=== PATIENT | male | born 1960 | race African-American/Black ===

== ENCOUNTER 2017-11-28 10:36 | Inpatient (IN) | payer BC, OTHER ==
[2017-11-28 11:02] VITALS: BMI 27.8
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
[2017-11-28] MEDS ORDERED: MAGNESIUM HYDROX 2400MG/30ML ORAL SUSPENSION 30 ML CUP PO PRN (14:58)
[2017-11-28] MEDS ORDERED: NICOTINE POLACRILEX 2 MG GUM BUC PRN (14:58)
[2017-11-28] MEDS ORDERED: guaiFENesin/D-METHORPHAN HB 10 ML UNIT-DOSE CUPS PO PRN (14:58)
[2017-11-28] MEDS ORDERED: IBUPROFEN 400 MG TABLET (FP) PO PRN (14:58)
[2017-11-28] MEDS ORDERED: P-EPHED 60MG/TRIPROLIDI 2.5MG TABLET PO PRN (14:58)
[2017-11-28] MEDS ORDERED: MAGNESIUM CITRATE 300 ML BOTTLE PO PRN (14:58)
[2017-11-28] MEDS ORDERED: hydrOXYzine PAMOATE 50 MG CAPSULE (FP) PO PRN (14:58)
[2017-11-28] MEDS ORDERED: MENTHOL/PHENOL 1 EACH UD MM PRN (14:58)
[2017-11-28] MEDS ORDERED: ACETAMINOPHEN 325 MG TABLET (FP) PO PRN (14:58)
[2017-11-28] MEDS ORDERED: LOPERAMIDE HCL 2 MG CAPSULE PO PRN (14:58)
[2017-11-28] MEDS ORDERED: MAG HYDROX/AL HYDROX/SIMETH 30 ML UNIT-DOSE CUP PO PRN (14:58)
[2017-11-28] MEDS ORDERED: METHADONE HCL 10 MG TABLET (FOR DETOX USE ONLY) PO ONE ×2 (15:10→23:00)
[2017-11-28] MEDS: diazePAM 5 MG TABLET PO PRN (16:35)
[2017-11-28] MEDS: GABAPENTIN 100 MG CAPSULE (FP) PO SCH ×2 (16:35→21:31)
[2017-11-28] MEDS: INSULIN SLIDING SCALE (NOVOLOG) 1 VIAL SQ SCH ×2 (16:38→21:31)
[2017-11-28] MEDS: INSULIN (LEVEMIR) 100 UNITS/ML UNITS SQ SCH (21:30)
[2017-11-28] MEDS: ATORVASTATIN CA 40 MG TABLET (FP) PO SCH (21:31)
[2017-11-28] MEDS: THIAMINE HCL 100 MG TABLET (FP) PO SCH (21:31)
[2017-11-28] MEDS ORDERED: MELATONIN 5 MG TABLETS PO PRN (22:00)
[2017-11-28 23:27] LABS: URINE APPEARANCE CLEAR; URINE BILIRUBIN NEGATIVE (<2.0 mg/dL); URINE COLOR YELLOW; URINE GLUCOSE (UA) NEGATIVE (NEGATIVE); URINE KETONE NEGATIVE (NEGATIVE); URINE LEUK ESTERASE NEGATIVE (NEGATIVE); URINE NITRITE NEGATIVE (NEGATIVE); URINE PROTEIN NEGATIVE (NEGATIVE)
[2017-11-29] MEDS: GABAPENTIN 100 MG CAPSULE (FP) PO SCH ×3 (05:20→22:52)
[2017-11-29] MEDS: diazePAM 5 MG TABLET PO PRN ×2 (05:20→10:40)
[2017-11-29] MEDS: INSULIN SLIDING SCALE (NOVOLOG) 1 VIAL SQ SCH ×4 (07:06→22:52)
[2017-11-29] MEDS ORDERED: METHADONE HCL 10 MG TABLET (FOR DETOX USE ONLY) ONE (08:52)
--- NOTE | 2017-11-29 09:05 | EKG ---
Test Reason : Blood Pressure : / mmHG Vent. Rate : 085 BPM Atrial Rate : 085 BPM P-R Int : 182 ms QRS Dur : 100 ms QT Int : 390 ms P-R-T Axes : 079 039 069 degrees QTc Int : 464 ms NORMAL SINUS RHYTHM POSSIBLE LEFT ATRIAL ENLARGEMENT CANNOT RULE OUT SEPTAL INFARCT , AGE UNDETERMINED ABNORMAL ECG WHEN COMPARED WITH ECG OF 07-AUG-2017 21:32, SEPTAL INFARCT IS NOW PRESENT Confirmed by DELMA FISCHER MD ([id number]) on 11/29/2017 9:05:14 AM Referred By: Confirmed By:DELMA FISCHER MD
--- NOTE | 2017-11-29 09:11 | CONSULT ---
[facility] Psychiatric Consult - Data Date of interview: 11/29/17 Admission source: [facility] Identifying data: Patient is a 57 year old single male, without kids, domiciled , and supported by SSD. This is one of multiple admissions for patient. Patient admitted to for opiate dependence. Substance Abuse History: Smoking Cessation. Smoking history: Current every day smoker. Have you smoked in the past 12 months: Yes. Aproximately how many cigarettes per day: 8. Cigars Per Day: 0. Hx Chewing Tobacco Use: No. Initiated information on smoking cessation: Yes. 'Breaking Loose' booklet given : 11/28/17. - Substance & Tx. History. Hx Alcohol Use: No. Hx Substance Use: Yes. Substance Use Type: Heroin, Marijuana. Hx Substance Use Treatment: Yes. - Substances Abused. Heroin. Route: Injection. Frequency: Daily. Amount used: 3 BAGS. Age of first use: 23. Date of Last Use: 11/28/17. Marijuana/ Hashish. Route: Smoking. Frequency: Daily. Amount used: 1 JOINT. Age of first use: 23. Date of Last Use: 11/25/17 Medical History: hypertension, diabetes, Hep C Psychiatric History: Patient reports multiple psychiatric hospitalizations, last admission was in 2002. Patient has been admitted to [facility] and other hospitals but is unable to recall the names. OPD is provided in [place] at the [facility]. Pt is receiving haldol decanoate 100mg monthly. Pt. reports receiving his most recent dose during the first week of November. Pt. is also taking zyprexa 5mg qhs. Diagnosis of schizophrenia. Pt. denies h/o suicide attempt. Physical/Sexual Abuse/Trauma History: Denies. Mental Status Exam - Mental Status Exam Alert and Oriented to: Time, Place, Person Cognitive Function: Good Patient Appearance: Well Groomed Mood: Hopeful, Euthymic Affect: Mood Congruent Patient Behavior: Cooperative Speech Pattern: Appropriate Voice Loudness: Normal Thought Process: Goal Oriented Thought Disorder: Not Present Hallucinations: Denies Suicidal Ideation: Denies Homicidal Ideation: Denies Insight/Judgement: Poor Sleep: Fair Appetite: Fair Muscle strength/Tone: Normal Gait/Station: Normal Psychiatric Findings - Problem List ([place] 1, 2,3) (1) Schizophrenia Current Visit: Yes Status: Chronic (2) Opioid dependence with withdrawal Current Visit: Yes Status: Acute (3) GERD (gastroesophageal reflux disease) Current Visit: Yes Status: Chronic Qualifiers: Esophagitis presence: esophagitis presence not specified Qualified Code(s) : K21.9 - Gastro-esophageal reflux disease without esophagitis (4) HLD (hyperlipidemia) Current Visit: Yes Status: Chronic Qualifiers: Hyperlipidemia type: unspecified Qualified Code(s): E78.5 - Hyperlipidemia , unspecified (5) HTN (hypertension) Current Visit: Yes Status: Chronic Qualifiers: Hypertension type: essential hypertension Qualified Code(s): I10 - Essential (primary) hypertension (6) History of positive PPD Current Visit: Yes Status: Chronic (7) Nicotine dependence Current Visit: Yes Status: Chronic Qualifiers: Nicotine product type: cigarettes Substance use status: uncomplicated Qualified Code(s): F17.210 - Nicotine dependence, cigarettes, uncomplicated - Initial Treatment Plan Initial Treatment Plan: Psychoeducation provided. Detoxification in progress. Zyprexa 5mg qhs ordered. Pt states he was given his haldol decanoate 100mg during the first week of november. No psychosis, manic or depressive symptoms noted. Benefits and side effects discussed. Verbal consent given.
[2017-11-29 09:46] LABS: HEMATOCRIT 39.4 % (35.4-49); MCHC 33.1 g/dl (32.0-35.9); MEAN CELL VOLUME 93.7 fl (80-96); MEAN PLT VOLUME 8.4 fl (7.5-11.1); PLATELET COUNT 252 K/MM3 (134-434); RBC 4.21 M/mm3 (4.00-5.60); RDW 14.7 % (11.9-15.9); WHITE BLOOD COUNT 5.5 K/mm3 (4.0-10.0)
[2017-11-29] MEDS ORDERED: HYDROCHLOROTHIAZIDE PO SCH (10:00)
[2017-11-29] MEDS ORDERED: VALSARTAN PO SCH (10:00)
[2017-11-29] MEDS ORDERED: [UNRECOGNIZED DRUG - OTHER] PO SCH (10:00)
[2017-11-29] MEDS ORDERED: METHADONE HCL 10 MG TABLET (FOR DETOX USE ONLY) PO ONE (10:00)
[2017-11-29] MEDS: NAPROXEN 375 MG TABLET (FP) PO SCH ×2 (10:38→22:51)
[2017-11-29] MEDS: PRENATAL VITAMINS W/ FOLIC ACID TABLET (FP) PO SCH (10:39)
[2017-11-29] MEDS: HYDROCHLOROTHIAZIDE 25 MG TABLET (FP) PO SCH (10:40)
[2017-11-29] MEDS: NICOTINE 21 MG/24 HOURS TOPICAL PATCH TD SCH (10:40)
[2017-11-29] MEDS: BACITRACIN 0.9 GM PACKET TP SCH ×2 (10:41→22:51)
[2017-11-29 11:01] LABS: CHLORIDE 105 mmol/L (98-107); POTASSIUM 3.8 mmol/L (3.5-5.1); SODIUM 141 mmol/L (136-145)
[2017-11-29 11:09] LABS: ALBUMIN 3.3 g/dl (3.4-5.0); ALK PHOS 102 U/L (45-117); ANION GAP 8 (8-16); BILIRUBIN,TOTAL 0.3 mg/dL (0.2-1.0); BLOOD UREA NITROGEN 13 mg/dL (7-18); CALCIUM 8.6 mg/dL (8.5-10.1); CO2 28 mmol/L (21-32); CREATININE 0.9 mg/dL (0.7-1.3); GLUCOSE,RANDOM 125 mg/dL (74-106); SGOT/AST 34 U/L (15-37); SGPT/ALT 44 U/L (12-78); TOT PROT 7.3 g/dl (6.4-8.2)
[2017-11-29] MEDS: VALSARTAN 160 MG TABLET (UD) PO SCH (11:42)
--- NOTE | 2017-11-29 16:49 | PN ---
BHS COWS - Scale Resting Pulse: 0= [place] 80 or Below Sweatin= Chills/Flushing Restless Observation: 1= Difficult to Sit Still Pupil Size: 0= Normal to Room Light Bone or Joint Aches: 4=Acute Joint/Muscle Pain Runny Nose/ Eye Tearin= Runny Nose/Eyes GI Upset > 30mins: 0= None Tremor Observation of Outstretched Hands: 0= None Yawning Observation: 1= 1-2x During Session Anxiety or Irritability: 2=Irritable/Anxious Goose Flesh Skin: 3=Piloerection COWS Score: 14 BHS Progress Note (SOAP) Subjective: Anxious, Body Aches, Interrupted Sleep. Objective: PATIENT A & O X 3, OBSERVED AMBULATING ON UNIT. NO ACUTE DISTRESS. 11/29/17 16:47 Vital Signs Temperature 98.6 F 11/29/17 13:29 Pulse Rate 73 11/29/17 13:29 Respiratory Rate 18 11/29/17 13:29 Blood Pressure 148/87 11/29/17 13:29 O2 Sat by Pulse Oximetry (%) Laboratory Tests 11/28/17 11/28/17 11/28/17 12:13 16:24 20:25 WBC RBC Hgb Hct MCV MCH MCHC RDW Plt Count MPV Sodium Potassium Chloride Carbon Dioxide Anion Gap BUN Creatinine Creat Clearance w eGFR POC Glucometer 137 94 146 Random Glucose Calcium Total Bilirubin AST ALT Alkaline Phosphatase Total Protein Albumin Urine Color Urine Appearance Urine pH Ur Specific [place] Urine Protein Urine Glucose (UA) Urine Ketones Urine Blood Urine Nitrite Urine Bilirubin Urine Urobilinogen Ur Leukocyte Esterase 11/28/17 11/29/17 11/29/17 23:10 05:19 05:50 WBC 5.5 RBC 4.21 Hgb 13.0 Hct 39.4 MCV 93.7 MCH 31.0 MCHC 33.1 RDW 14.7 Plt Count 252 D MPV 8.4 Sodium Potassium Chloride Carbon Dioxide Anion Gap BUN Creatinine Creat Clearance w eGFR POC Glucometer 91 Random Glucose Calcium Total Bilirubin AST ALT Alkaline Phosphatase Total Protein Albumin Urine Color Yellow Urine Appearance Clear Urine pH 7.0 D Ur Specific [place] 1.017 Urine Protein Negative Urine Glucose (UA) Negative Urine Ketones Negative Urine Blood Negative Urine Nitrite Negative Urine Bilirubin Negative Urine Urobilinogen 2.0 Ur Leukocyte Esterase Negative 11/29/17 11/29/17 05:50 11:33 WBC RBC Hgb Hct MCV MCH MCHC RDW Plt Count MPV Sodium 141 Potassium 3.8 Chloride 105 Carbon Dioxide 28 Anion Gap 8 BUN 13 D Creatinine 0.9 Creat Clearance w eGFR > 60 POC Glucometer 139 Random Glucose 125 H D Calcium 8.6 Total Bilirubin 0.3 D AST 34 ALT 44 Alkaline Phosphatase 102 Total Protein 7.3 Albumin 3.3 L Urine Color Urine Appearance Urine pH Ur Specific [place] Urine Protein Urine Glucose (UA) Urine Ketones Urine Blood Urine Nitrite Urine Bilirubin Urine Urobilinogen Ur Leukocyte Esterase LABS NOTED. RPR RESULT PENDING. 11/29/17 16:48 Assessment: 11/29/17 16:47 WITHDRAWAL SYMPTOMS. Plan: CONTINUE DETOX.
[2017-11-29] MEDS ORDERED: OLANZapine 5 MG TABLET PO SCH (22:00)
[2017-11-29] MEDS: INSULIN (LEVEMIR) 100 UNITS/ML UNITS SQ SCH (22:51)
[2017-11-29] MEDS: ATORVASTATIN CA 40 MG TABLET (FP) PO SCH (22:51)
[2017-11-29] MEDS: THIAMINE HCL 100 MG TABLET (FP) PO SCH (22:53)
[2017-11-30] MEDS: GABAPENTIN 100 MG CAPSULE (FP) PO SCH ×2 (05:28→15:48)
[2017-11-30] MEDS: diazePAM 5 MG TABLET PO PRN ×2 (05:28→10:40)
[2017-11-30] MEDS ORDERED: cloNIDine HCL 0.1 MG TABLET PO ONE (06:32)
--- NOTE | 2017-11-30 06:38 | PN ---
S Progress Note Note: Patient 's blood pressure this morning is B/P 164/102. Patient is asymptomatic. Vital Signs Temperature 97.5 F L 11/30/17 06:21 Pulse Rate 67 11/30/17 06:21 Respiratory Rate 18 11/30/17 06:21 Blood Pressure 164/102 11/30/17 06:21 O2 Sat by Pulse Oximetry (%) Laboratory Last Values WBC 5.5 K/mm3 (4.0-10.0) 11/29/17 05:50 RBC 4.21 M/mm3 (4.00-5.60) 11/29/17 05:50 Hgb 13.0 GM/dL (11.7-16.9) 11/29/17 05:50 Hct 39.4 % (35.4-49) 11/29/17 05:50 MCV 93.7 fl (80-96) 11/29/17 05:50 MCH 31.0 pg (25.7-33.7) 11/29/17 05:50 MCHC 33.1 g/dl (32.0-35.9) 11/29/17 05:50 RDW 14.7 % (11.9-15.9) 11/29/17 05:50 Plt Count 252 K/MM3 (134-434) D 11/29/17 05:50 MPV 8.4 fl (7.5-11.1) 11/29/17 05:50 Sodium 141 mmol/L (136-145) 11/29/17 05:50 Potassium 3.8 mmol/L (3.5-5.1) 11/29/17 05:50 Chloride 105 mmol/L (98-107) 11/29/17 05:50 Carbon Dioxide 28 mmol/L (21-32) 11/29/17 05:50 Anion Gap 8 (8-16) 11/29/17 05:50 BUN 13 mg/dL (7-18) D 11/29/17 05:50 Creatinine 0.9 mg/dL (0.7-1.3) 11/29/17 05:50 Creat Clearance w eGFR > 60 (>60) 11/29/17 05:50 POC Glucometer 114 UNITS (80-120) 11/30/17 05:30 Random Glucose 125 mg/dL (74-106) H D 11/29/17 05:50 Calcium 8.6 mg/dL (8.5-10.1) 11/29/17 05:50 Total Bilirubin 0.3 mg/dL (0.2-1.0) D 11/29/17 05:50 AST 34 U/L (15-37) 11/29/17 05:50 ALT 44 U/L (12-78) 11/29/17 05:50 Alkaline Phosphatase 102 U/L (45-117) 11/29/17 05:50 Total Protein 7.3 g/dl (6.4-8.2) 11/29/17 05:50 Albumin 3.3 g/dl (3.4-5.0) L 11/29/17 05:50 Urine Color Yellow 11/28/17 23:10 Urine Appearance Clear 11/28/17 23:10 Urine pH 7.0 (5.0-8.0) D 11/28/17 23:10 Ur Specific [place] 1.017 (1.001-1.035) 11/28/17 23:10 Urine Protein Negative (NEGATIVE) 11/28/17 23:10 Urine Glucose (UA) Negative (NEGATIVE) 11/28/17 23:10 Urine Ketones Negative (NEGATIVE) 11/28/17 23:10 Urine Blood Negative (NEGATIVE) 11/28/17 23:10 Urine Nitrite Negative (NEGATIVE) 11/28/17 23:10 Urine Bilirubin Negative (<2.0 mg/dL) 11/28/17 23:10 Urine Urobilinogen 2.0 mg/dL (0.2-1.0) 11/28/17 23:10 Ur Leukocyte Esterase Negative (NEGATIVE) 11/28/17 23:10 Action: Clonidine 0.1mg tablet oral ordered.
[2017-11-30] MEDS: INSULIN SLIDING SCALE (NOVOLOG) 1 VIAL SQ SCH ×2 (07:41→11:24)
[2017-11-30] MEDS ORDERED: METHADONE HCL 5 MG TABLET (FOR DETOX USE ONLY) PO ONE (10:00)
[2017-11-30] MEDS: VALSARTAN 160 MG TABLET (UD) PO SCH (10:40)
[2017-11-30] MEDS: HYDROCHLOROTHIAZIDE 25 MG TABLET (FP) PO SCH (10:40)
[2017-11-30] MEDS: BACITRACIN 0.9 GM PACKET TP SCH (10:40)
[2017-11-30] MEDS: NAPROXEN 375 MG TABLET (FP) PO SCH (10:40)
[2017-11-30] MEDS: PRENATAL VITAMINS W/ FOLIC ACID TABLET (FP) PO SCH (10:40)
[2017-11-30] MEDS: NICOTINE 21 MG/24 HOURS TOPICAL PATCH TD SCH (11:24)
[2017-11-30 15:09] VITALS: BP 124/88; PULSE 79; TEMP 97.6
--- NOTE | 2017-11-30 16:28 | PN ---
BHS COWS - Scale Resting Pulse: 0= [place] 80 or Below Sweatin= Chills/Flushing Restless Observation: 1= Difficult to Sit Still Pupil Size: 0= Normal to Room Light Bone or Joint Aches: 2= Severe Diffuse Aches Runny Nose/ Eye Tearin= Nasal Congestion GI Upset > 30mins: 0= None Tremor Observation of Outstretched Hands: 0= None Yawning Observation: 1= 1-2x During Session Anxiety or Irritability: 2=Irritable/Anxious Goose Flesh Skin: 3=Piloerection COWS Score: 11 BHS Progress Note (SOAP) Subjective: Sweating, Anxious, Interrupted Sleep. Objective: PATIENT A & O X 3, OBSERVED AMBULATING ON UNIT. NO ACUTE DISTRESS. 11/30/17 16:25 Vital Signs Temperature 97.6 F 11/30/17 15:09 Pulse Rate 79 11/30/17 15:09 Respiratory Rate 20 11/30/17 15:09 Blood Pressure 124/88 11/30/17 15:09 O2 Sat by Pulse Oximetry (%) Laboratory Tests 11/28/17 11/28/17 11/28/17 12:13 16:24 20:25 WBC RBC Hgb Hct MCV MCH MCHC RDW Plt Count MPV Sodium Potassium Chloride Carbon Dioxide Anion Gap BUN Creatinine Creat Clearance w eGFR POC Glucometer 137 94 146 Random Glucose Calcium Total Bilirubin AST ALT Alkaline Phosphatase Total Protein Albumin Urine Color Urine Appearance Urine pH Ur Specific [place] Urine Protein Urine Glucose (UA) Urine Ketones Urine Blood Urine Nitrite Urine Bilirubin Urine Urobilinogen Ur Leukocyte Esterase RPR Titer 11/28/17 11/29/17 11/29/17 23:10 05:19 05:50 WBC 5.5 RBC 4.21 Hgb 13.0 Hct 39.4 MCV 93.7 MCH 31.0 MCHC 33.1 RDW 14.7 Plt Count 252 D MPV 8.4 Sodium Potassium Chloride Carbon Dioxide Anion Gap BUN Creatinine Creat Clearance w eGFR POC Glucometer 91 Random Glucose Calcium Total Bilirubin AST ALT Alkaline Phosphatase Total Protein Albumin Urine Color Yellow Urine Appearance Clear Urine pH 7.0 D Ur Specific [place] 1.017 Urine Protein Negative Urine Glucose (UA) Negative Urine Ketones Negative Urine Blood Negative Urine Nitrite Negative Urine Bilirubin Negative Urine Urobilinogen 2.0 Ur Leukocyte Esterase Negative RPR Titer 11/29/17 11/29/1718 05:50 05:50 11:33 WBC RBC Hgb Hct MCV MCH MCHC RDW Plt Count MPV Sodium 141 Potassium 3.8 Chloride 105 Carbon Dioxide 28 Anion Gap 8 BUN 13 D Creatinine 0.9 Creat Clearance w eGFR > 60 POC Glucometer 139 Random Glucose 125 H D Calcium 8.6 Total Bilirubin 0.3 D AST 34 ALT 44 Alkaline Phosphatase 102 Total Protein 7.3 Albumin 3.3 L Urine Color Urine Appearance Urine pH Ur Specific [place] Urine Protein Urine Glucose (UA) Urine Ketones Urine Blood Urine Nitrite Urine Bilirubin Urine Urobilinogen Ur Leukocyte Esterase RPR Titer Nonreactive 11/29/17 11/29/17 11/30/17 16:30 21:19 05:30 WBC RBC Hgb Hct MCV MCH MCHC RDW Plt Count MPV Sodium Potassium Chloride Carbon Dioxide Anion Gap BUN Creatinine Creat Clearance w eGFR POC Glucometer 109 166 114 Random Glucose Calcium Total Bilirubin AST ALT Alkaline Phosphatase Total Protein Albumin Urine Color Urine Appearance Urine pH Ur Specific [place] Urine Protein Urine Glucose (UA) Urine Ketones Urine Blood Urine Nitrite Urine Bilirubin Urine Urobilinogen Ur Leukocyte Esterase RPR Titer 11/30/17 11:23 WBC RBC Hgb Hct MCV MCH MCHC RDW Plt Count MPV Sodium Potassium Chloride Carbon Dioxide Anion Gap BUN Creatinine Creat Clearance w eGFR POC Glucometer 110 Random Glucose Calcium Total Bilirubin AST ALT Alkaline Phosphatase Total Protein Albumin Urine Color Urine Appearance Urine pH Ur Specific [place] Urine Protein Urine Glucose (UA) Urine Ketones Urine Blood Urine Nitrite Urine Bilirubin Urine Urobilinogen Ur Leukocyte Esterase RPR Titer LABS NOTED. Assessment: 11/30/17 16:25 WITHDRAWAL SYMPTOMS. Plan: CONTINUE DETOX. PATIENT REPORTS THAT HE IS TOLERATING CURRENT DETOX SYMPTOMS RELATIVELY WELL. AT PATIENT'S REQUEST, DETOX MEDICATION REGIMEN (METHADONE) MODIFIED SO THAT PATIENT MAY BE DISCHARGED FROM DETOX UNIT ON 12/02/2017.
[2017-12-01] MEDS ORDERED: METHADONE HCL 10 MG TABLET (FOR DETOX USE ONLY) PO ONE (10:00)
[2017-12-01] MEDS ORDERED: METHADONE HCL 5 MG TABLET (FOR DETOX USE ONLY) PO ONE (10:00)
[2017-12-02] MEDS ORDERED: METHADONE HCL 5 MG TABLET (FOR DETOX USE ONLY) PO ONE (06:00)
[2017-12-02] MEDS ORDERED: METHADONE HCL 10 MG TABLET (FOR DETOX USE ONLY) PO ONE (10:00)
--- NOTE | 2017-12-02 22:17 | EKG ---
Test Reason : Blood Pressure : / mmHG Vent. Rate : 075 BPM Atrial Rate : 075 BPM P-R Int : 160 ms QRS Dur : 098 ms QT Int : 406 ms P-R-T Axes : 078 042 071 degrees QTc Int : 453 ms NORMAL SINUS RHYTHM SEPTAL INFARCT (CITED ON OR BEFORE 28-NOV-2017) ABNORMAL ECG WHEN COMPARED WITH ECG OF 28-NOV-2017 15:53, NO SIGNIFICANT CHANGE WAS FOUND Confirmed by JEROME GONZALES MD ([id number]) on 12/02/2017 10:17:20 PM Referred By: Confirmed By:JEROME GONZALES MD
[2017-12-03] MEDS ORDERED: METHADONE HCL 5 MG TABLET (FOR DETOX USE ONLY) PO ONE (06:00)
== END 2017-11-30 05:28 | disposition left against medical advice (07) | DRG 894 ==
LOC: YASAS 10:36 → Y3N 13:54
PROVIDERS: ADMIT Family Medicine Addiction Medicine; ATTEND Family Medicine Addiction Medicine
PROC: HZ2ZZZZ Detoxification Services for Substance Abuse Treatment (ICD-10-PCS; principal; 2017-11-28)
DX: F11.23 Opioid dependence with withdrawal (principal); F20.0 Paranoid schizophrenia; F17.210 Nicotine dependence, cigarettes, uncomplicated; I10 Essential (primary) hypertension; E78.5 Hyperlipidemia, unspecified; E78.00 Pure hypercholesterolemia, unspecified; K21.9 Gastro-esophageal reflux disease without esophagitis; E11.9 Type 2 diabetes mellitus without complications; R76.11 Nonspecific reaction to tuberculin skin test without active tuberculosis
CPT/HCPCS: 36415; 80053; 81003; 82962; 85027; 86593; 93005; 93010; J0735

== ENCOUNTER 2018-02-05 14:43 | Inpatient (IN) | payer BC, OTHER ==
[2018-02-05 16:15] VITALS: BMI 28.7
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
[2018-02-05] MEDS ORDERED: ACETAMINOPHEN 325 MG TABLET (FP) PO PRN (19:23)
[2018-02-05] MEDS ORDERED: MAG HYDROX/AL HYDROX/SIMETH 30 ML UNIT-DOSE CUP PO PRN (19:23)
[2018-02-05] MEDS ORDERED: LOPERAMIDE HCL 2 MG CAPSULE PO PRN (19:23)
[2018-02-05] MEDS ORDERED: P-EPHED 60MG/TRIPROLIDI 2.5MG TABLET PO PRN (19:23)
[2018-02-05] MEDS ORDERED: NICOTINE POLACRILEX 2 MG GUM BC PRN (19:23)
[2018-02-05] MEDS ORDERED: IBUPROFEN 400 MG TABLET (FP) PO PRN (19:23)
[2018-02-05] MEDS ORDERED: guaiFENesin/D-METHORPHAN HB 10 ML UNIT-DOSE CUPS PO PRN (19:23)
[2018-02-05] MEDS ORDERED: METHADONE HCL 10 MG TABLET (FOR DETOX USE ONLY) PO ONE ×2 (19:23→23:00)
[2018-02-05] MEDS ORDERED: MENTHOL/PHENOL 1 EACH UD MM PRN (19:23)
[2018-02-05] MEDS ORDERED: MAGNESIUM HYDROX 2400MG/30ML ORAL SUSPENSION 30 ML CUP PO PRN (19:23)
[2018-02-05] MEDS ORDERED: MAGNESIUM CITRATE 300 ML BOTTLE PO PRN (19:23)
[2018-02-05] MEDS: diazePAM 5 MG TABLET PO PRN (20:55)
[2018-02-05] MEDS ORDERED: MELATONIN 5 MG TABLETS PO PRN (22:00)
[2018-02-05] MEDS: GABAPENTIN 100 MG CAPSULE (FP) PO SCH (22:07)
[2018-02-05] MEDS: ATORVASTATIN CA 40 MG TABLET (FP) PO SCH (22:07)
[2018-02-05] MEDS: THIAMINE HCL 100 MG TABLET (FP) PO SCH (22:33)
[2018-02-06 00:05] LABS: URINE APPEARANCE SLCLOUDY; URINE BILIRUBIN NEGATIVE (<2.0 mg/dL); URINE COLOR AMBER; URINE GLUCOSE (UA) NEGATIVE (NEGATIVE); URINE KETONE NEGATIVE (NEGATIVE); URINE LEUK ESTERASE NEGATIVE (NEGATIVE); URINE NITRITE NEGATIVE (NEGATIVE); URINE PROTEIN NEGATIVE (NEGATIVE)
[2018-02-06] MEDS: GABAPENTIN 100 MG CAPSULE (FP) PO SCH ×3 (05:29→22:21)
[2018-02-06] MEDS: INSULIN SLIDING SCALE (NOVOLOG) 1 VIAL SQ SCH ×3 (07:13→17:28)
--- NOTE | 2018-02-06 08:43 | CONSULT ---
[facility] Psychiatric Consult - Data Date of interview: 02/06/18 Admission source: [facility] Identifying data: Patient is a 57 year old single male, without kids, unemployed , living in an SRO, and supported by [facility]. This is one of multiple admissions for patient. Pt. admitted to for opiate dependence. Substance Abuse History: Smoking Cessation. Smoking history: Current every day smoker. Have you smoked in the past 12 months: Yes. Aproximately how many cigarettes per day: 20. Cigars Per Day: 0. Hx Chewing Tobacco Use: No. Initiated information on smoking cessation: Yes. 'Breaking Loose' booklet given : 02/05/18. - Substance & Tx. History. Hx Alcohol Use: Yes. Hx Substance Use : Yes. Substance Use Type: Heroin, Marijuana. Hx Substance Use Treatment: Yes (Last detox [facility] 11/28/17 -11/30/17 left AMA.). - Substances Abused. Heroin. Route: Injection. Frequency: Daily. Amount used: 2 BAGS. Age of first use: 16. Date of Last Use: 02/05/18 Medical History: Hep C, Diabetes, hypertension, hypercholesterolemia, Bilateral pneumothorax Psychiatric History: Patients first psychiatric contact was in his 20's after exhibiting aggressive behavior. Pt. reports h/o paranoia but denies h/o auditory and visual hallucinations. Patient reports multiple psychiatric hospitalizations but none recently. Last psychiatric hospitalization was 13 years ago ([facility], [facility], and hospitals in [place]). Outpatient psychiatric services is provided at [facility]. Pt. receives haldol deconate 100mg monthly and zyprexa 5mg qhs. Pt is due for haldol deconanate next week. Pt. denies h/o suicide attempt. Diagnosis of schizophrenia. Physical/Sexual Abuse/Trauma History: denies. Mental Status Exam - Mental Status Exam Alert and Oriented to: Time, Place, Person Cognitive Function: Good Patient Appearance: Well Groomed Mood: Euthymic Affect: Appropriate, Mood Congruent Patient Behavior: Appropriate, Cooperative Speech Pattern: Appropriate Voice Loudness: Normal Thought Process: Intact, Goal Oriented Thought Disorder: Not Present Hallucinations: Denies Suicidal Ideation: Denies Homicidal Ideation: Denies Insight/Judgement: Poor Sleep: Fair Appetite: Fair Muscle strength/Tone: Normal Gait/Station: Normal Psychiatric Findings - Problem List ([place] 1, 2,3) (1) Opioid dependence with withdrawal Current Visit: Yes Status: Acute (2) Nicotine dependence Current Visit: Yes Status: Chronic Qualifiers: Nicotine product type: cigarettes Substance use status: uncomplicated Qualified Code(s): F17.210 - Nicotine dependence, cigarettes, uncomplicated (3) Schizophrenia Current Visit: Yes Status: Chronic - Initial Treatment Plan Initial Treatment Plan: Psychoeducation provided. Detoxification in progress. Zyprexa 5mg qhs ordered. Benefits and side effects discussed. Verbal consent given.
[2018-02-06] MEDS ORDERED: [UNRECOGNIZED DRUG - OTHER] PO SCH (10:00)
[2018-02-06] MEDS ORDERED: HYDROCHLOROTHIAZIDE PO SCH (10:00)
[2018-02-06] MEDS ORDERED: VALSARTAN PO SCH (10:00)
[2018-02-06] MEDS ORDERED: METHADONE HCL 10 MG TABLET (FOR DETOX USE ONLY) PO ONE (10:00)
[2018-02-06] MEDS: PRENATAL VITAMINS W/ FOLIC ACID TABLET (FP) PO SCH (10:08)
[2018-02-06] MEDS: HYDROCHLOROTHIAZIDE 25 MG TABLET (FP) PO SCH (10:08)
[2018-02-06] MEDS: VALSARTAN 160 MG TABLET (UD) PO SCH (10:08)
[2018-02-06] MEDS: diazePAM 5 MG TABLET PO PRN (10:09)
[2018-02-06] MEDS: NICOTINE 14 MG/24 HOURS TOPICAL PATCH TD SCH (10:09)
[2018-02-06 10:14] LABS: HEMATOCRIT 42.3 % (35.4-49); HEMOGLOBIN 13.9 GM/dL (11.7-16.9); MCH 30.1 pg (25.7-33.7); MCHC 32.8 g/dl (32.0-35.9); MEAN CELL VOLUME 91.8 fl (80-96); PLATELET COUNT 214 K/MM3 (134-434); RBC 4.61 M/mm3 (4.00-5.60); RDW 15.5 % (11.9-15.9); WHITE BLOOD COUNT 4.7 K/mm3 (4.0-10.0)
--- NOTE | 2018-02-06 12:18 | EKG ---
Test Reason : Blood Pressure : / mmHG Vent. Rate : 076 BPM Atrial Rate : 076 BPM P-R Int : 180 ms QRS Dur : 102 ms QT Int : 392 ms P-R-T Axes : 075 060 070 degrees QTc Int : 441 ms NORMAL SINUS RHYTHM SEPTAL INFARCT (CITED ON OR BEFORE 28-NOV-2017) ABNORMAL ECG WHEN COMPARED WITH ECG OF 29-NOV-2017 09:50, NO SIGNIFICANT CHANGE WAS FOUND Confirmed by EDITH CARRION, GINA ([id number]) on 02/06/2018 12:17:45 PM Referred By: Confirmed By:GINA SHARMA MD
[2018-02-06 12:31] LABS: CHLORIDE 103 mmol/L (98-107); POTASSIUM 3.5 mmol/L (3.5-5.1); SODIUM 142 mmol/L (136-145)
[2018-02-06 12:59] LABS: ALBUMIN 3.1 g/dl (3.4-5.0); ALK PHOS 90 U/L (45-117); ANION GAP 10 MMOL/L (8-16); BILIRUBIN,TOTAL 0.7 mg/dL (0.2-1.0); BLOOD UREA NITROGEN 10 mg/dL (7-18); CALCIUM 8.8 mg/dL (8.5-10.1); CO2 29 mmol/L (21-32); CREATININE 0.9 mg/dL (0.7-1.3); GLUCOSE,RANDOM 92 mg/dL (74-106); SGOT/AST 32 U/L (15-37); SGPT/ALT 37 U/L (12-78); TOT PROT 6.9 g/dl (6.4-8.2)
[2018-02-06] MEDS ORDERED: TRIMETHOBENZAMIDE HCL 200MG/2ML INJ IM PRN (15:30)
--- NOTE | 2018-02-06 15:34 | PN ---
S CIWA - CIWA Score Nausea/Vomitin Muscle Tremors: None Anxiety: 4-Mod. Anxious/Guarded Agitation: 2 Paroxysmal Sweats: No Perspiration Orientation: 0-Oriented Tacttile Disturbances: 3-Moderate Itch/Numb/Burn Auditory Disturbances: 0-None Visual Disturbances: 3-Moderate Sensitivity Headache: 0-None Present CIWA-Ar Total Score: 15 S Progress Note (SOAP) Subjective: Nausea, Stomach Cramping, Fatigue, Chills. Objective: PATIENT A & O X 3, OBSERVED AMBULATING ON UNIT. NO ACUTE DISTRESS. 02/06/18 15:35 Vital Signs Temperature 96.3 F L 02/06/18 14:07 Pulse Rate 73 02/06/18 14:07 Respiratory Rate 18 02/06/18 14:07 Blood Pressure 131/90 02/06/18 14:07 O2 Sat by Pulse Oximetry (%) Laboratory Tests 02/05/18 02/05/18 02/06/18 16:37 Unknown 05:29 WBC RBC Hgb Hct MCV MCH MCHC RDW Plt Count MPV Sodium Potassium Chloride Carbon Dioxide Anion Gap BUN Creatinine Creat Clearance w eGFR POC Glucometer 125 101 Random Glucose Calcium Total Bilirubin AST ALT Alkaline Phosphatase Total Protein Albumin Urine Color Debra Urine Appearance Slcloudy Urine pH 5.0 D Ur Specific [place] 1.014 Urine Protein Negative Urine Glucose (UA) Negative Urine Ketones Negative Urine Blood Negative Urine Nitrite Negative Urine Bilirubin Negative Urine Urobilinogen 2.0 Ur Leukocyte Esterase Negative RPR Titer 02/06/18 02/06/18 02/06/18 07:40 07:40 07:40 WBC 4.7 RBC 4.61 Hgb 13.9 Hct 42.3 MCV 91.8 MCH 30.1 MCHC 32.8 RDW 15.5 Plt Count 214 MPV 8.0 Sodium 142 Potassium 3.5 Chloride 103 Carbon Dioxide 29 Anion Gap 10 BUN 10 Creatinine 0.9 Creat Clearance w eGFR > 60 POC Glucometer Random Glucose 92 D Calcium 8.8 Total Bilirubin 0.7 AST 32 ALT 37 Alkaline Phosphatase 90 Total Protein 6.9 Albumin 3.1 L Urine Color Urine Appearance Urine pH Ur Specific [place] Urine Protein Urine Glucose (UA) Urine Ketones Urine Blood Urine Nitrite Urine Bilirubin Urine Urobilinogen Ur Leukocyte Esterase RPR Titer Nonreactive 02/06/18 11:14 WBC RBC Hgb Hct MCV MCH MCHC RDW Plt Count MPV Sodium Potassium Chloride Carbon Dioxide Anion Gap BUN Creatinine Creat Clearance w eGFR POC Glucometer 94 Random Glucose Calcium Total Bilirubin AST ALT Alkaline Phosphatase Total Protein Albumin Urine Color Urine Appearance Urine pH Ur Specific [place] Urine Protein Urine Glucose (UA) Urine Ketones Urine Blood Urine Nitrite Urine Bilirubin Urine Urobilinogen Ur Leukocyte Esterase RPR Titer LABS NOTED. Assessment: 02/06/18 15:35 WITHDRAWAL SYMPTOMS. Plan: CONTINUE DETOX. PRN TIGAN IM FOR NAUSEA.
[2018-02-06] MEDS ORDERED: INSULIN (NOVOLOG) ASPART 100 UNITS/ML 10ML VIAL ONE (16:37)
[2018-02-06] MEDS ORDERED: OLANZapine 5 MG TABLET PO SCH (22:00)
[2018-02-06] MEDS: ATORVASTATIN CA 40 MG TABLET (FP) PO SCH (22:21)
[2018-02-06] MEDS: BACITRACIN 0.9 GM PACKET TP SCH (22:21)
[2018-02-06] MEDS: THIAMINE HCL 100 MG TABLET (FP) PO SCH (22:21)
[2018-02-07] MEDS: GABAPENTIN 100 MG CAPSULE (FP) PO SCH (05:48)
[2018-02-07] MEDS: INSULIN SLIDING SCALE (NOVOLOG) 1 VIAL SQ SCH ×2 (07:34→12:15)
[2018-02-07 09:55] VITALS: BP 142/97; PULSE 71; TEMP 96.6
[2018-02-07] MEDS ORDERED: METHADONE HCL 5 MG TABLET (FOR DETOX USE ONLY) PO ONE (10:00)
[2018-02-07] MEDS: HYDROCHLOROTHIAZIDE 25 MG TABLET (FP) PO SCH (10:02)
[2018-02-07] MEDS: BACITRACIN 0.9 GM PACKET TP SCH (10:02)
[2018-02-07] MEDS: PRENATAL VITAMINS W/ FOLIC ACID TABLET (FP) PO SCH (10:02)
[2018-02-07] MEDS: NICOTINE 14 MG/24 HOURS TOPICAL PATCH TD SCH (10:03)
[2018-02-07] MEDS: VALSARTAN 160 MG TABLET (UD) PO SCH (10:03)
[2018-02-08] MEDS ORDERED: METHADONE HCL 5 MG TABLET (FOR DETOX USE ONLY) PO ONE (10:00)
[2018-02-09] MEDS ORDERED: METHADONE HCL 10 MG TABLET (FOR DETOX USE ONLY) PO ONE (10:00)
[2018-02-10] MEDS ORDERED: METHADONE HCL 5 MG TABLET (FOR DETOX USE ONLY) PO ONE (06:00)
== END 2018-02-07 12:40 | disposition left against medical advice (07) | DRG 894 ==
LOC: YASAS 14:43 → Y3N 17:36
PROC: HZ2ZZZZ Detoxification Services for Substance Abuse Treatment (ICD-10-PCS; principal; 2018-02-05)
DX: F11.23 Opioid dependence with withdrawal (principal); F20.0 Paranoid schizophrenia; F12.20 Cannabis dependence, uncomplicated; F17.210 Nicotine dependence, cigarettes, uncomplicated; I10 Essential (primary) hypertension; K21.9 Gastro-esophageal reflux disease without esophagitis; E78.5 Hyperlipidemia, unspecified; E11.9 Type 2 diabetes mellitus without complications; Z79.4 Long term (current) use of insulin; R76.11 Nonspecific reaction to tuberculin skin test without active tuberculosis; Z86.69 Personal history of other diseases of the nervous system and sense organs; Z86.19 Personal history of other infectious and parasitic diseases
CPT/HCPCS: 36415; 80053; 81003; 82962; 85027; 86593; 93005; 93010